=== PATIENT | female | born 1970 | race Caucasian/White ===

== ENCOUNTER 2018-03-27 11:28 | Emergency (ER) | payer MEDICAID, OTHER ==
[2018-03-27] MEDS: CEPHALEXIN 500 MG CAP PO (13:24)
[2018-03-27] MEDS: KETOROLAC 60 MG INJ IM (13:25)
== END 2018-03-27 13:52 | disposition home or self-care (01) ==
LOC: FTE 11:28
DX: M79.89 Other specified soft tissue disorders (principal); L03.115 Cellulitis of right lower limb; I10 Essential (primary) hypertension
CPT/HCPCS: 81025; 93971; 96372; 99285-25